=== PATIENT | female | born 1970 | race Native Hawaiian/Other Pacific Islander ===

== ENCOUNTER 2018-09-24 10:32 | Outpatient (CLI) | payer OTHER ==
[2018-09-24 10:50] LABS: PLATELET COUNT 223 K/uL (152-353)
[2018-09-24 11:12] LABS: POTASSIUM 4.2 mmol/L (3.6-5.2)
== END 2018-09-24 19:19 | disposition home or self-care (01) ==
LOC: LABW 10:32
PROVIDERS: Physician Assistant
DX: Z00.00 Encounter for general adult medical examination without abnormal findings (principal); Z68.43 Body mass index [BMI] 50.0-59.9, adult; M79.672 Pain in left foot; N92.0 Excessive and frequent menstruation with regular cycle; I10 Essential (primary) hypertension
CPT/HCPCS: 36415; 80053; 80061; 82306; 83036; 84439; 84443; 85027